=== PATIENT | female | born 1970 | race African-American/Black ===

== ENCOUNTER 2017-07-07 12:23 | Emergency (ER) | payer MEDICAID, OTHER ==
[~2017-07-07] VITALS: Ht 167.6 cm; Wt 85.0 kg
[~2017-07-07 12:23] MED LIST: QUET25TA
[2017-07-07 12:26] VITALS: BP 140/80
[2017-07-07] MEDS ORDERED: IBUPROFEN 600MG TABLET PO ONE (14:00)
== END 2017-07-07 19:56 | disposition left against medical advice (07) ==
LOC: ER 12:26
DX: M79.604 Pain in right leg (principal); R05 Cough; I10 Essential (primary) hypertension; Z88.0 Allergy status to penicillin
CPT/HCPCS: 99283

== ENCOUNTER 2019-06-05 10:17 | Emergency (ER) | payer MEDICAID ==
[~2019-06-05] VITALS: Ht 167.6 cm; Wt 91.0 kg
[2019-06-05] MEDS ORDERED: FOLIC ACID 1 MG, THIAMINE HCL 100 MG, MVI, ADULT NO.1 10 ML in DEXTROSE 5% WATER 1,000 ML IV ONE ×4 (10:45)
[2019-06-05 11:24] LABS: CHLORIDE 106 mEq/L (98-107)
[2019-06-05 11:28] LABS: BASOPHILS % 0.7 % (0.0-2.0); EOSINOPHILS % 2.2 % (0.0-5.0); HEMATOCRIT. 36.2 % (36.0-48.0); HEMOGLOBIN. 12.8 g/dL (12.0-16.0); LYMPHOCYTES % 29.2 % (20.0-50.0); MEAN CORPUSCULAR VOLUME 93.5 fL (81.0-99.0); MEAN PLATELET VOLUME 8.9 fl (7.4-10.4); MONOCYTES % 9.7 % (2.0-8.0); NEUTROPHILS % 58.2 % (40.0-76.0); PLATELET 197 x1000/uL (130-400); RED BLOOD CELL COUNT 3.87 mill/uL (4.2-5.4); RED CELL DISTRIBUTION WIDTH 13.3 % (11.6-14.6)
[2019-06-05 11:31] LABS: ETHANOL BLOOD < 10 mg/dL
[2019-06-05 12:22] LABS: CLARITY URINE CLOUDY (CLEAR); COLOR URINE YELLOW (YELLOW); KETONES URINE NEGATIVE (NEGATIVE); LEUKOCYTE ESTERASE URINE 1+ (NEGATIVE); NITRITE URINE NEGATIVE (NEGATIVE); OCCULT BLOOD URINE NEGATIVE (NEGATIVE); PROTEIN URINE NEGATIVE (NEGATIVE); SPECIFIC GRAVITY URINE 1.016 (1.005-1.030); UROBILINOGEN URINE 0.2 E.U./dL (0.2-1.0)
[2019-06-05 12:53] LABS: *AMPHETAMINES SCREEN URINE NEGATIVE (NEGATIVE); *BARBITURATES SCREEN URINE NEGATIVE (NEGATIVE); *BENZODIAZEPINES SCREEN URINE NEGATIVE (NEGATIVE); METHADONE URINE SCREEN NEGATIVE (NEGATIVE); OPIATES URINE SCREEN NEGATIVE (NEGATIVE)
[2019-06-05 12:57] LABS: *COCAINE SCREEN URINE PRESUMTIVE POSITIVE (NEGATIVE); CANNABINOID URINE SCREEN PRESUMTIVE POSITIVE (NEGATIVE); PHENCYCLIDINE URINE SCREEN PRESUMTIVE POSITIVE (NEGATIVE)
[2019-06-05 13:37] VITALS: BP 135/88
== END 2019-06-05 13:42 | disposition home or self-care (01) ==
LOC: ER 10:17
DX: T40.5X1A Poisoning by cocaine, accidental (unintentional), initial encounter (principal); F14.129 Cocaine abuse with intoxication, unspecified; F16.129 Hallucinogen abuse with intoxication, unspecified; T40.991A Poisoning by other psychodysleptics [hallucinogens], accidental (unintentional), initial encounter; G92 Toxic encephalopathy; Y92.89 Other specified places as the place of occurrence of the external cause; R03.0 Elevated blood-pressure reading, without diagnosis of hypertension; G40.909 Epilepsy, unspecified, not intractable, without status epilepticus; Z86.73 Personal history of transient ischemic attack (TIA), and cerebral infarction without residual deficits
CPT/HCPCS: 36415; 80053; 80305; 80307; 80320; 80329; 81003; 85025; 96365; 99284; J3411; J3490; J7070; G0480

== ENCOUNTER 2022-10-31 17:55 | Emergency (ER) | payer MEDICAID ==
[~2022-10-31] VITALS: Ht 167.6 cm; Wt 73.0 kg
[2022-10-31 17:58] VITALS: O2SAT 98
[2022-10-31] MEDS ORDERED: MORPHINE SULFATE 4 MG/ML CPJ (NOT FOR IM USE) IV STA (18:08)
[2022-10-31] MEDS ORDERED: SODIUM CHLORIDE 0.9% 1,000 ML IV ONE (18:15)
[2022-10-31 18:30] VITALS: TEMP 98.6
[2022-10-31 18:51] VITALS: BP 163/95; PULSE 85; RESP 17
[2022-10-31 19:04] LABS: BASOPHILS % 0.4 % (0.0-2.0); EOSINOPHILS % 1.4 % (0.0-5.0); HEMATOCRIT. 37.1 % (36.0-48.0); HEMOGLOBIN. 12.9 g/dL (12.0-16.0); LYMPHOCYTES % 40.1 % (20.0-50.0); MEAN CORPUSCULAR HEMOGLOBIN 32.9 pg (28.0-32.0); MEAN CORPUSCULAR HGB CONC 34.7 g/dL (31.0-37.0); MEAN CORPUSCULAR VOLUME 94.8 fL (81.0-99.0); MEAN PLATELET VOLUME 9.2 fl (7.4-10.4); MONOCYTES % 7.6 % (2.0-8.0); NEUTROPHILS % 50.5 % (40.0-76.0); PLATELET 187 x1000/uL (130-400); RED BLOOD CELL COUNT 3.91 mill/uL (4.2-5.4); RED CELL DISTRIBUTION WIDTH 13.8 % (11.6-14.6); WHITE BLOOD COUNT 5.1 x1000/uL (4.5-11.0)
[2022-10-31 19:09] LABS: CLARITY URINE CLEAR (CLEAR); COLOR URINE YELLOW (YELLOW); GLUCOSE URINE NEGATIVE (NEGATIVE); KETONES URINE NEGATIVE (NEGATIVE); LEUKOCYTE ESTERASE URINE NEGATIVE (NEGATIVE); NITRITE URINE NEGATIVE (NEGATIVE); OCCULT BLOOD URINE NEGATIVE (NEGATIVE); PH URINE 5.5 (4.5-8.0); PROTEIN URINE NEGATIVE (NEGATIVE); SPECIFIC GRAVITY URINE 1.004 (1.005-1.030); UROBILINOGEN URINE 0.2 E.U./dL (0.2-1.0)
[2022-10-31 19:13] LABS: CHLORIDE 103 mEq/L (98-107); INDEX HEMOLYSI 1 (1-3); INDEX ICTERIC 1 (1-4); INDEX LIPEMIC 1 (1-3); POTASSIUM 3.8 mEq/L (3.5-5.1); SODIUM 135 mEq/L (136-145)
[2022-10-31 19:14] LABS: HCG SCREEN NEGATIVE
[2022-10-31 19:16] LABS: INR 0.9; PROTHROMBIN TIME 9.8 sec (9.6-11.0)
[2022-10-31 19:22] LABS: ALANINE AMINOTRANSFERASE 125 IU/L (13-61); ALBUMIN 4.2 g/dL (3.4-5.0); ASPARTATE AMINOTRANSFERASE 119 IU/L (15-37); BILIRUBIN TOTAL 0.3 mg/dL (0.1-1.0); CALCIUM 9.1 mg/dL (8.5-10.1); CARBON DIOXIDE 28 mEq/L (21-32); CREATININE 0.8 mg/dL (0.6-1.3); ETHANOL BLOOD 264 mg/dL (-10); GLUCOSE 95 mg/dL (70-105); PROTEIN TOTAL 8.5 g/dL (6.0-8.3); TROPONIN I HIGH SENSITIVITY 7 ng/L (<54); UREA NITROGEN BLOOD 9 mg/dL (7-21)
[2022-10-31] MEDS ORDERED: FAMO20TA8 MT (21:45)
[2022-10-31] MEDS ORDERED: ACET325T52 PO (22:06)
== END 2022-11-01 00:49 | disposition home or self-care (01) ==
LOC: ER 17:55
DX: R11.2 Nausea with vomiting, unspecified (principal); R74.01 Elevation of levels of liver transaminase levels; F15.90 Other stimulant use, unspecified, uncomplicated; F10.90 Alcohol use, unspecified, uncomplicated; Z88.0 Allergy status to penicillin; Y90.9 Presence of alcohol in blood, level not specified
CPT/HCPCS: 80053; 81003; 80320; 84703; 83605; 85025; 85610; 84484; 36415; 71045; 71250; 74176; 96361; 96374; 99285; J2270; J7030; Z7610; G0480

== ENCOUNTER 2023-03-27 19:39 | Inpatient (IN) | payer MEDICAID ==
[~2023-03-27] VITALS: Ht 152.4 cm; Wt 65.6 kg
[~2023-03-27 19:39] MED LIST changes: +ACET325T52 PO; +FAMO20TA8 MT
[2023-03-27 21:10] LABS: HEMATOCRIT. 38.6 % (36.0-48.0); HEMOGLOBIN. 13.3 g/dL (12.0-16.0); MEAN CORPUSCULAR HEMOGLOBIN 32.9 pg (28.0-32.0); MEAN CORPUSCULAR HGB CONC 34.5 g/dL (31.0-37.0); MEAN CORPUSCULAR VOLUME 95.4 fL (81.0-99.0); MEAN PLATELET VOLUME 8.6 fl (7.4-10.4); PLATELET 199 x1000/uL (130-400); RED BLOOD CELL COUNT 4.05 mill/uL (4.2-5.4); RED CELL DISTRIBUTION WIDTH 13.2 % (11.6-14.6); WHITE BLOOD COUNT 5.2 x1000/uL (4.5-11.0)
[2023-03-27 21:13] LABS: DIFFERENTIAL COMMENT 1
[2023-03-27 21:23] LABS: HCG SCREEN NEGATIVE
[2023-03-27 21:26] LABS: ALANINE AMINOTRANSFERASE 76 IU/L (10-49); ALBUMIN 4.3 g/dL (3.2-4.8); ASPARTATE AMINOTRANSFERASE 82 IU/L (<34); BILIRUBIN TOTAL 0.6 mg/dL (0.1-1.0); CALCIUM 9.5 mg/dL (8.7-10.4); CARBON DIOXIDE 18 mEq/L (21-32); CHLORIDE 106 mEq/L (98-107); CREATININE 0.7 mg/dL (0.6-1.0); ETHANOL BLOOD 19 mg/dL (<10); GLUCOSE 84 mg/dL (70-105); POTASSIUM 3.9 mEq/L (3.5-5.1); SODIUM 138 mEq/L (136-145); UREA NITROGEN BLOOD 12 mg/dL (9-23)
[2023-03-27 21:34] LABS: PLATELET ESTIMATE NORMAL
[2023-03-28] MEDS ORDERED: METOCLOPRAMIDE HCL 10MG/2ML VIAL IV STA (00:02)
[2023-03-28] MEDS ORDERED: FAMOTIDINE 20MG/2ML VIAL IV STA (00:02)
[2023-03-28] MEDS ORDERED: SODIUM CHLORIDE 0.9% 1,000 ML IV ONE (00:15)
[2023-03-28 01:36] LABS: CLARITY URINE CLOUDY (CLEAR); COLOR URINE YELLOW (YELLOW); GLUCOSE URINE NEGATIVE (NEGATIVE); KETONES URINE 1+ (NEGATIVE); LEUKOCYTE ESTERASE URINE NEGATIVE (NEGATIVE); NITRITE URINE NEGATIVE (NEGATIVE); OCCULT BLOOD URINE NEGATIVE (NEGATIVE); PROTEIN URINE NEGATIVE (NEGATIVE); UROBILINOGEN URINE 0.2 E.U./dL (0.2-1.0)
[2023-03-28 01:39] LABS: BACTERIA URINE NONE SEEN; RBC URINE NONE SEEN /hpf (0-2); SQUAMOUS EPITHELIAL CELL URINE FEW /lpf (RARE/1+); WBC URINE NONE SEEN /hpf (0-2)
[2023-03-28 01:52] LABS: *AMPHETAMINES SCREEN URINE NEGATIVE (NEGATIVE); *BARBITURATES SCREEN URINE NEGATIVE (NEGATIVE); *BENZODIAZEPINES SCREEN URINE NEGATIVE (NEGATIVE); *COCAINE SCREEN URINE NEGATIVE (NEGATIVE); CANNABINOID URINE SCREEN PRESUMPTIVE POSITIVE (NEGATIVE); ECSTASY MDMA SCREEN URINE NEGATIVE (NEGATIVE); METHADONE URINE SCREEN Neg (NEGATIVE); OPIATES URINE SCREEN NEGATIVE (NEGATIVE); PHENCYCLIDINE URINE SCREEN PRESUMTIVE POSITIVE (NEGATIVE)
[2023-03-28 04:42] LABS: ETHANOL BLOOD < 10 mg/dL (<10)
[2023-03-28 04:43] LABS: PHENYTOIN < 2.0 ug/mL (10-20)
[2023-03-28 05:30] VITALS: BP 132/53; PULSE 90; RESP 20; TEMP 97.7
[2023-03-28 06:09] VITALS: BP 132/53; PULSE 86; RESP 18; TEMP 98.1
[2023-03-28] MEDS ORDERED: CLONIDINE 0.1MG TABLET PO PRN (06:15)
[2023-03-28] MEDS ORDERED: ONDANSETRON HCL 4MG/2ML INJ IV PRN (06:15)
[2023-03-28] MEDS ORDERED: SODIUM CHLORIDE 0.9% 1,000 ML IV SCH (06:15)
[2023-03-28] MEDS ORDERED: ACETAMINOPHEN 325MG TABLET PO PRN (06:15)
[2023-03-28] MEDS ORDERED: IPRATROPIUM/ALBUTEROL 0.5-3(2.5)MG/3ML NEB HHN PRN (06:15)
[2023-03-28] MEDS: PANTOPRAZOLE SODIUM 40 MG/VIAL IV SCH ×2 (06:49→09:00)
[2023-03-28] MEDS: ACETAMINOPHEN 325MG TABLET PO PRN ×3 (06:51→18:37)
[2023-03-28 08:00] VITALS: BP 125/90; PULSE 90; RESP 20; TEMP 99.8
[2023-03-28] MEDS: ENOXAPARIN 40MG/0.4ML SYR SUBCUT SCH (09:00)
[2023-03-28] MEDS ORDERED: DEXT 5%/0.9% NACL 1,000 ML IV ONE (09:00)
[2023-03-28 09:11] LABS: D-DIMER 0.82 mg/L FEU (<0.50); PROTHROMBIN TIME 10.6 sec (9.6-11.0)
[2023-03-28] MEDS ORDERED: SIMV10TA97 PO (10:14)
[2023-03-28] MEDS ORDERED: NIFE-33 PO (10:14)
[2023-03-28] MEDS: THIAMINE HCL 100 MG/1 ML 2ML VIAL IM SCH ×2 (10:15→11:29)
[2023-03-28] MEDS ORDERED: LORAZEPAM 1MG TABLET PO PRN (10:15)
[2023-03-28] MEDS ORDERED: CHLORDIAZEPOXIDE 25MG CAPSULE PO PRN (10:15)
[2023-03-28] MEDS ORDERED: LOPERAMIDE HCL 2MG CAPSULE PO NR (11:15)
[2023-03-28] MEDS: FOLIC ACID 1MG TABLET PO SCH (11:28)
[2023-03-28] MEDS: MULTIVITAMINS,THER W-MINERALS TABLET PO SCH (11:28)
[2023-03-28 12:00] VITALS: BP 136/68; PULSE 77; RESP 18; TEMP 99
[2023-03-28] MEDS ORDERED: LORAZEPAM 2MG/ML INJ IV PRN (15:30)
[2023-03-28 16:00] VITALS: BP 167/108; PULSE 85; RESP 20; TEMP 96.6
[2023-03-28] MEDS ORDERED: MAGNESIUM 2 G PREMIX 50 ML IV NR (17:00)
[2023-03-28] MEDS: MAGNESIUM OXIDE 400MG TABLET PO SCH (18:37)
[2023-03-28 20:00] VITALS: BP 146/84; PULSE 86; RESP 20; TEMP 98.1
[2023-03-29] VITALS: BP 153/77; PULSE 85; RESP 20; TEMP 97.5
[2023-03-29] MEDS: ACETAMINOPHEN 325MG TABLET PO PRN ×2 (00:01→06:23)
[2023-03-29 04:00] VITALS: BP 156/90; PULSE 77; RESP 20; TEMP 97.2
[2023-03-29 08:00] VITALS: BP 157/82; PULSE 72; RESP 18; TEMP 98.3
[2023-03-29] MEDS: MULTIVITAMINS,THER W-MINERALS TABLET PO SCH (08:36)
[2023-03-29] MEDS: FOLIC ACID 1MG TABLET PO SCH (08:36)
[2023-03-29] MEDS: PANTOPRAZOLE SODIUM 40 MG/VIAL IV SCH (08:37)
[2023-03-29] MEDS: MAGNESIUM OXIDE 400MG TABLET PO SCH (08:37)
[2023-03-29] MEDS: THIAMINE HCL 100 MG/1 ML 2ML VIAL IM SCH (09:00)
[2023-03-29] MEDS: ENOXAPARIN 40MG/0.4ML SYR SUBCUT SCH (09:00)
[2023-03-29 09:56] LABS: BASOPHILS % 0.4 % (0.0-2.0); EOSINOPHILS % 1.4 % (0.0-5.0); HEMATOCRIT. 38.1 % (36.0-48.0); HEMOGLOBIN. 13.1 g/dL (12.0-16.0); LYMPHOCYTES % 20.7 % (20.0-50.0); MEAN CORPUSCULAR HEMOGLOBIN 32.5 pg (28.0-32.0); MEAN CORPUSCULAR HGB CONC 34.3 g/dL (31.0-37.0); MEAN CORPUSCULAR VOLUME 94.5 fL (81.0-99.0); MEAN PLATELET VOLUME 9.2 fl (7.4-10.4); MONOCYTES % 10.7 % (2.0-8.0); NEUTROPHILS % 66.8 % (40.0-76.0); PLATELET 184 x1000/uL (130-400); RED BLOOD CELL COUNT 4.03 mill/uL (4.2-5.4); RED CELL DISTRIBUTION WIDTH 12.8 % (11.6-14.6); WHITE BLOOD COUNT 2.3 x1000/uL (4.5-11.0)
[2023-03-29 10:16] LABS: ALANINE AMINOTRANSFERASE 61 IU/L (10-49); ALBUMIN 4.2 g/dL (3.2-4.8); ASPARTATE AMINOTRANSFERASE 71 IU/L (<34); BILIRUBIN TOTAL 0.4 mg/dL (0.1-1.0); CALCIUM 9.4 mg/dL (8.7-10.4); CARBON DIOXIDE 21 mEq/L (21-32); CHLORIDE 105 mEq/L (98-107); CHOLESTEROL 212 mg/dL (<200); CREATININE 0.8 mg/dL (0.6-1.0); GLUCOSE 91 mg/dL (70-105); HDL CHOLESTEROL 70 mg/dL (>65); LDL CHOLESTEROL 114 mg/dL (5-100); POTASSIUM 3.3 mEq/L (3.5-5.1); PROTEIN TOTAL 7.6 g/dL (6.0-8.3); SODIUM 138 mEq/L (136-145); T4 FREE 1.23 ng/dL (0.89-1.76); THYROID STIMULATING HORMONE 0.61 uIU/mL (0.55-4.78); TRIGLYCERIDE 84 mg/dL (0-150); UREA NITROGEN BLOOD 10 mg/dL (9-23)
[2023-03-29] MEDS ORDERED: BISM262T15 MT (10:43)
[2023-03-29 11:18] VITALS: BP 157/82; PULSE 72; TEMP 98.3; O2SAT 100
[2023-03-29] MEDS ORDERED: BISMUTH SUBSALICYLATE 262 MG/15 ML-120ML BOTTLE PO NR (12:00)
[2023-03-29 12:07] LABS: HEPATITIS A AB IGM NEGATIVE (Negative); HEPATITIS B CORE AB IGM NEGATIVE (Negative); HEPATITIS B SURFACE ANTIGEN NEGATIVE (Negative); HEPATITIS C AB NON REACTIVE (Neg) (Negative)
[2023-03-29] MEDS ORDERED: PANTOPRAZOLE 40MG DR TABLET PO SCH (17:20)
[2023-03-31] MEDS ORDERED: THIAMINE HCL 100MG TABLET PO SCH (09:00)
== END 2023-03-29 11:40 | disposition home or self-care (01) | DRG 249 ==
LOC: ER 19:39 → 6EST 03-28 03:02 → EDBEDREQTM 03-28 03:04 → EDBEDREQ 03-28 03:04 → ER 03-28 05:17
PROVIDERS: ADMIT Internal Medicine; ATTEND Internal Medicine
DX: A08.4 Viral intestinal infection, unspecified (principal); E83.39 Other disorders of phosphorus metabolism; E87.20 Acidosis, unspecified; E87.6 Hypokalemia; I10 Essential (primary) hypertension; G40.909 Epilepsy, unspecified, not intractable, without status epilepticus; I69.341 Monoplegia of lower limb following cerebral infarction affecting right dominant side; F10.10 Alcohol abuse, uncomplicated; F20.9 Schizophrenia, unspecified; F43.10 Post-traumatic stress disorder, unspecified; F19.10 Other psychoactive substance abuse, uncomplicated; R74.01 Elevation of levels of liver transaminase levels; Z88.0 Allergy status to penicillin; Z79.899 Other long term (current) drug therapy
CPT/HCPCS: 36415; 74176; 80053; 80061; 80185; 80305; 80320; 81003; 82270; 83605; 83735; 84100; 84145; 84439; 84443; 84703; 85025; 85379; 86705; 86709; 87015; 87045; 87340; 87427; 87449; 93970; 99285; A6261; C1893; C9113; J1650; J2765; J3411; J3475; J3490; J7030; G0480

== ENCOUNTER 2023-04-05 16:51 | Emergency (ER) | payer MEDICAID ==
[~2023-04-05] VITALS: Ht 167.6 cm; Wt 77.0 kg
[~2023-04-05 16:51] MED LIST changes: -ACET325T52 PO; +BISM262T15 MT; -FAMO20TA8 MT; +NIFE-33 PO; -QUET25TA; +SIMV10TA97 PO
[2023-04-05 16:56] VITALS: TEMP 98.6; O2SAT 100
[2023-04-05] MEDS ORDERED: DICL50TA9 MT (17:59)
[2023-04-05 18:00] VITALS: BP 174/100; PULSE 91; RESP 16
[2023-04-05] MEDS ORDERED: HYDROCODONE/ACETAMINOPHEN 5/325MG TABLET PO ONE (18:00)
== END 2023-04-05 18:09 | disposition home or self-care (01) ==
LOC: ER 16:51
DX: S09.90XA Unspecified injury of head, initial encounter (principal); M25.522 Pain in left elbow; M25.521 Pain in right elbow; I10 Essential (primary) hypertension; Z88.0 Allergy status to penicillin; Z86.59 Personal history of other mental and behavioral disorders; Z91.018 Allergy to other foods; Z98.890 Other specified postprocedural states; W18.30XA Fall on same level, unspecified, initial encounter; Y93.89 Activity, other specified; Y92.89 Other specified places as the place of occurrence of the external cause; Y99.8 Other external cause status
CPT/HCPCS: 99283

== ENCOUNTER 2023-05-25 22:16 | Emergency (ER) | payer MEDICAID ==
[~2023-05-25] VITALS: Ht 152.4 cm; Wt 80.0 kg
[~2023-05-25 22:16] MED LIST changes: -BISM262T15 MT
[2023-05-25 22:18] VITALS: BP 139/80; PULSE 86; RESP 18; TEMP 98.4; O2SAT 98
[2023-05-25] MEDS ORDERED: LIDOCAINE HCL/PF 1% 10 MG/ML 5ML VIAL INFIL ONE (23:00)
[2023-05-25] MEDS ORDERED: BACITRACIN ZINC OINT UDPKT TOP ONE (23:00)
[2023-05-25] MEDS ORDERED: TETANUS, DIPHTHERIA, PERTUSSIS VAC/PF 0.5ML (>10YR OLD) IM ONE (23:00)
[2023-05-25] MEDS ORDERED: BO1 TP (23:11)
== END 2023-05-26 00:15 | disposition left against medical advice (07) ==
LOC: ER 22:16
DX: S61.212A Laceration without foreign body of right middle finger without damage to nail, initial encounter (principal); I10 Essential (primary) hypertension; Y99.8 Other external cause status; Z88.0 Allergy status to penicillin; Z91.018 Allergy to other foods; Z98.890 Other specified postprocedural states; Z86.59 Personal history of other mental and behavioral disorders; Z86.73 Personal history of transient ischemic attack (TIA), and cerebral infarction without residual deficits; Y04.0XXA Assault by unarmed brawl or fight, initial encounter; Y93.89 Activity, other specified; Y92.89 Other specified places as the place of occurrence of the external cause
CPT/HCPCS: 99283; 73140; 90715; 12001; 90471; J3490

== ENCOUNTER 2023-09-13 22:17 | Emergency (ER) | payer MEDICAID ==
[~2023-09-13] VITALS: Ht 154.9 cm; Wt 78.0 kg
[~2023-09-13 22:17] MED LIST changes: +BO1 TP
[2023-09-13 22:21] VITALS: BP 143/92; PULSE 89; RESP 18; TEMP 98.5; O2SAT 98
[2023-09-14] MEDS ORDERED: KETOROLAC 30MG/ML VIAL IM ONE (00:15)
[2023-09-14 00:57] LABS: HEMOGLOBIN. 13.6 g/dL (12.0-16.0); LYMPHOCYTES % 40.5 % (20.0-50.0); MEAN CORPUSCULAR HEMOGLOBIN 33.2 pg (28.0-32.0); MEAN CORPUSCULAR HGB CONC 34.9 g/dL (31.0-37.0); MEAN CORPUSCULAR VOLUME 95.3 fL (81.0-99.0); MEAN PLATELET VOLUME 8.5 fl (7.4-10.4); MONOCYTES % 8.3 % (2.0-8.0); NEUTROPHILS % 48.2 % (40.0-76.0); PLATELET 210 x1000/uL (130-400); RED BLOOD CELL COUNT 4.09 mill/uL (4.2-5.4); RED CELL DISTRIBUTION WIDTH 12.9 % (11.6-14.6); WHITE BLOOD COUNT 4.7 x1000/uL (4.5-11.0)
[2023-09-14 01:08] LABS: CHLORIDE 108 mEq/L (98-107); POTASSIUM 4.3 mEq/L (3.5-5.1); SODIUM 141 mEq/L (136-145)
[2023-09-14 01:09] LABS: CARBON DIOXIDE 27 mEq/L (21-32)
[2023-09-14 01:14] LABS: CREATININE 0.9 mg/dL (0.6-1.0); GLUCOSE 83 mg/dL (70-105)
[2023-09-14 01:15] LABS: UREA NITROGEN BLOOD 8 mg/dL (9-23)
[2023-09-14 01:17] LABS: TROPONIN I HIGH SENSITIVITY < 4 ng/L (3.0-34)
[2023-09-14] MEDS ORDERED: ACET325T52 MT (01:24)
[2023-09-14] MEDS ORDERED: ACETAMINOPHEN 325MG TABLET PO ONE (02:00)
== END 2023-09-14 02:14 | disposition home or self-care (01) ==
LOC: ER 22:17
DX: R07.89 Other chest pain (principal); I10 Essential (primary) hypertension; F20.9 Schizophrenia, unspecified; R56.9 Unspecified convulsions; Z86.73 Personal history of transient ischemic attack (TIA), and cerebral infarction without residual deficits; Z88.0 Allergy status to penicillin; Z79.899 Other long term (current) drug therapy
CPT/HCPCS: 99285; 82962; 71045; 80048; 85025; 84484; 36415; 93005; J1885

== ENCOUNTER 2024-05-22 18:23 | Emergency (ER) | payer MEDICAID ==
[~2024-05-22] VITALS: Ht 152.4 cm; Wt 68.0 kg
[~2024-05-22 18:23] MED LIST changes: +ACET-3800 MT
[2024-05-22 18:26] VITALS: BP 146/80; PULSE 99; RESP 20; TEMP 36.9; O2SAT 100
== END 2024-05-22 20:50 | disposition left against medical advice (07) ==
LOC: ER 18:23
DX: R11.2 Nausea with vomiting, unspecified (principal); Z53.21 Procedure and treatment not carried out due to patient leaving prior to being seen by health care provider

== ENCOUNTER 2024-05-27 21:19 | Emergency (ER) | payer MEDICAID ==
[~2024-05-27] VITALS: Ht 170.2 cm; Wt 77.0 kg
[2024-05-27 21:24] VITALS: TEMP 36.8; O2SAT 98
[2024-05-27 22:23] LABS: BASOPHILS % 0.6 % (0.0-2.0); EOSINOPHILS % 1.1 % (0.0-5.0); HEMATOCRIT. 37.7 % (36.0-48.0); HEMOGLOBIN. 13.1 g/dL (12.0-16.0); LYMPHOCYTES % 35.8 % (20.0-50.0); MEAN CORPUSCULAR HEMOGLOBIN 33.4 pg (28.0-32.0); MEAN CORPUSCULAR HGB CONC 34.6 g/dL (31.0-37.0); MEAN CORPUSCULAR VOLUME 96.4 fL (81.0-99.0); MEAN PLATELET VOLUME 8.5 fl (7.4-10.4); MONOCYTES % 12.5 % (2.0-8.0); PLATELET 249 x1000/uL (130-400); RED BLOOD CELL COUNT 3.91 mill/uL (4.2-5.4); RED CELL DISTRIBUTION WIDTH 12.8 % (11.6-14.6)
[2024-05-27 22:24] LABS: CHLORIDE 101 mEq/L (98-107); POTASSIUM 3.8 mEq/L (3.5-5.1); SODIUM 134 mEq/L (136-145)
[2024-05-27 22:25] LABS: CALCIUM 9.8 mg/dL (8.7-10.4); CARBON DIOXIDE 28 mEq/L (21-32)
[2024-05-27 22:30] LABS: CREATININE 0.9 mg/dL (0.6-1.0); GLUCOSE 82 mg/dL (70-105); UREA NITROGEN BLOOD 10 mg/dL (9-23)
[2024-05-27 22:33] LABS: TROPONIN I HIGH SENSITIVITY < 4 ng/L (3.0-34)
[2024-05-27 23:48] VITALS: BP 164/90; PULSE 90; RESP 16
[2024-05-27] MEDS: ONDANSETRON HCL 4MG TABLET PO ONE (23:48)
[2024-05-27] MEDS: KETOROLAC 15MG/ML VIAL IM ONE (23:48)
[2024-05-28] MEDS ORDERED: OFLO5DRO4 EACH EAR (01:26)
[2024-05-28] MEDS ORDERED: ACET-2708 MT (01:26)
== END 2024-05-28 01:36 | disposition home or self-care (01) ==
LOC: ER 21:19
DX: K29.70 Gastritis, unspecified, without bleeding (principal); H60.8X3 Other otitis externa, bilateral; F19.90 Other psychoactive substance use, unspecified, uncomplicated; I10 Essential (primary) hypertension; F20.9 Schizophrenia, unspecified; Z79.899 Other long term (current) drug therapy; Z88.0 Allergy status to penicillin
CPT/HCPCS: 99284; 80048; 85025; 84484; 36415; 74176; J1885; Q0162

== ENCOUNTER 2024-06-02 12:44 | Emergency (ER) | payer MEDICAID ==
[~2024-06-02] VITALS: Ht 165.1 cm; Wt 64.0 kg
[~2024-06-02 12:44] MED LIST changes: +ACET-2708 MT; +OFLO5DRO4 EACH EAR
[2024-06-02 12:51] VITALS: O2SAT 96
[2024-06-02] MEDS ORDERED: LORAZEPAM 2MG/ML INJ IM STA (13:07)
[2024-06-02] MEDS: DIPHENHYDRAMINE 50MG/ML VIAL IM STA (13:44)
[2024-06-02] MEDS: HALOPERIDOL LACTATE 5MG/ML VIAL IM STA (13:44)
[2024-06-02] MEDS: LORAZEPAM 2MG/ML INJ IM ONE (13:45)
[2024-06-02 14:02] LABS: CLARITY URINE CLOUDY (CLEAR); COLOR URINE YELLOW (YELLOW); GLUCOSE URINE NEGATIVE (NEGATIVE); KETONES URINE NEGATIVE (NEGATIVE); LEUKOCYTE ESTERASE URINE NEGATIVE (NEGATIVE); NITRITE URINE NEGATIVE (NEGATIVE); OCCULT BLOOD URINE NEGATIVE (NEGATIVE); PH URINE 5.5 (4.5-8.0); PROTEIN URINE NEGATIVE (NEGATIVE); SPECIFIC GRAVITY URINE 1.009 (1.005-1.030); UROBILINOGEN URINE 0.2 E.U./dL (0.2-1.0)
[2024-06-02 14:15] LABS: *AMPHETAMINES SCREEN URINE NEGATIVE (NEGATIVE); *BARBITURATES SCREEN URINE NEGATIVE (NEGATIVE); *BENZODIAZEPINES SCREEN URINE NEGATIVE (NEGATIVE); RBC URINE NONE SEEN /hpf (0-2); SQUAMOUS EPITHELIAL CELL URINE 3+ /lpf (RARE/1+)
[2024-06-02 14:16] LABS: *COCAINE SCREEN URINE NEGATIVE (NEGATIVE); BACTERIA URINE 2+; CANNABINOID URINE SCREEN PRESUMPTIVE POSITIVE (NEGATIVE); ECSTASY MDMA SCREEN URINE NEGATIVE (NEGATIVE); METHADONE URINE SCREEN NEGATIVE (NEGATIVE); OPIATES URINE SCREEN NEGATIVE (NEGATIVE); PHENCYCLIDINE URINE SCREEN PRESUMTIVE POSITIVE (NEGATIVE); YEAST URINE NONE SEEN
[2024-06-02 15:59] LABS: BASOPHILS % 0.9 % (0.0-2.0); EOSINOPHILS % 1.8 % (0.0-5.0); HEMATOCRIT. 37.9 % (36.0-48.0); HEMOGLOBIN. 12.9 g/dL (12.0-16.0); LYMPHOCYTES % 45.5 % (20.0-50.0); MEAN CORPUSCULAR HEMOGLOBIN 33.1 pg (28.0-32.0); MEAN CORPUSCULAR HGB CONC 34.1 g/dL (31.0-37.0); MEAN CORPUSCULAR VOLUME 97.1 fL (81.0-99.0); MEAN PLATELET VOLUME 7.8 fl (7.4-10.4); MONOCYTES % 5.7 % (2.0-8.0); NEUTROPHILS % 46.1 % (40.0-76.0); PLATELET 252 x1000/uL (130-400); RED BLOOD CELL COUNT 3.91 mill/uL (4.2-5.4); RED CELL DISTRIBUTION WIDTH 12.7 % (11.6-14.6); WHITE BLOOD COUNT 4.2 x1000/uL (4.5-11.0)
[2024-06-02 16:09] LABS: CHLORIDE 110 mEq/L (98-107); POTASSIUM 3.4 mEq/L (3.5-5.1); SODIUM 146 mEq/L (136-145)
[2024-06-02 16:10] LABS: CALCIUM 9.2 mg/dL (8.7-10.4); CARBON DIOXIDE 26 mEq/L (21-32)
[2024-06-02 16:15] LABS: CREATININE 0.7 mg/dL (0.6-1.0); GLUCOSE 92 mg/dL (70-105); TROPONIN I HIGH SENSITIVITY 4 ng/L (3.0-34)
[2024-06-02 16:16] LABS: ETHANOL BLOOD 176 mg/dL (<10)
[2024-06-02 16:17] LABS: ACETAMINOPHEN < 2 ug/mL (10-30); ALANINE AMINOTRANSFERASE 49 IU/L (10-49); ASPARTATE AMINOTRANSFERASE 57 IU/L (<34); BILIRUBIN DIRECT 0.1 mg/dL (<=3.0); BILIRUBIN TOTAL 0.3 mg/dL (0.1-1.0)
[2024-06-02 16:23] LABS: UREA NITROGEN BLOOD < 5 mg/dL (9-23)
[2024-06-02] MEDS: NITROFURANTOIN 100MG M/M CAPSULE PO SCH (21:00)
[2024-06-03] MEDS: ACETAMINOPHEN 325MG TABLET PO NR (05:15)
[2024-06-03 06:00] VITALS: TEMP 36.7
[2024-06-03 18:36] VITALS: TEMP 98
[2024-06-03] MEDS: ACETAMINOPHEN 325MG TABLET PO ONE (18:36)
[2024-06-03] MEDS ORDERED: NITR-87 MT (20:14)
[2024-06-03] MEDS ORDERED: AMLODIPINE 10MG TABLET PO ONE (20:15)
[2024-06-03] MEDS: AMLODIPINE 5MG TABLET PO NR (22:48)
[2024-06-03 23:03] VITALS: BP 159/79; PULSE 64; RESP 14; O2SAT 100
== END 2024-06-03 22:47 ==
LOC: ER 12:44
DX: R41.0 Disorientation, unspecified (principal); R45.851 Suicidal ideations; I10 Essential (primary) hypertension; F20.9 Schizophrenia, unspecified; Z59.00 Homelessness unspecified; Z79.899 Other long term (current) drug therapy; Z86.73 Personal history of transient ischemic attack (TIA), and cerebral infarction without residual deficits; Z88.0 Allergy status to penicillin
CPT/HCPCS: 80076; 80305; 80048; 81003; 81025; 80307; 80329; 80320; 83690; 85025; 84484; 36415; 74176; 93005; 96372; 99291; J1200; J1630; J2060; Z7610; A4606; G0480

== ENCOUNTER 2024-07-15 15:56 | Emergency (ER) | payer MEDICAID ==
[~2024-07-15] VITALS: Ht 162.6 cm; Wt 60.0 kg
[~2024-07-15 15:56] MED LIST changes: +NITR-87 MT
[2024-07-15 15:59] VITALS: BP 128/79; PULSE 91; RESP 18; TEMP 36.9; O2SAT 96
[2024-07-15] MEDS ORDERED: MAGNESIUM/ALUMINUM HYDROXIDE/SIMETHICONE 30ML UDC PO STA (16:04)
[2024-07-15 17:09] LABS: BASOPHILS % 0.4 % (0.0-2.0); EOSINOPHILS % 1.9 % (0.0-5.0); HEMATOCRIT. 38.5 % (36.0-48.0); HEMOGLOBIN. 13.3 g/dL (12.0-16.0); MEAN CORPUSCULAR HEMOGLOBIN 32.5 pg (28.0-32.0); MEAN CORPUSCULAR HGB CONC 34.4 g/dL (31.0-37.0); MEAN CORPUSCULAR VOLUME 94.5 fL (81.0-99.0); MONOCYTES % 7.3 % (2.0-8.0); NEUTROPHILS % 51.4 % (40.0-76.0); PLATELET 185 x1000/uL (130-400); RED BLOOD CELL COUNT 4.08 mill/uL (4.2-5.4); RED CELL DISTRIBUTION WIDTH 13.7 % (11.6-14.6); WHITE BLOOD COUNT 4.9 x1000/uL (4.5-11.0)
[2024-07-15 17:19] LABS: CHLORIDE 103 mEq/L (98-107); POTASSIUM 3.9 mEq/L (3.5-5.1); SODIUM 142 mEq/L (136-145)
[2024-07-15 17:20] LABS: CARBON DIOXIDE 22 mEq/L (21-32)
[2024-07-15 17:21] LABS: CALCIUM 9.6 mg/dL (8.7-10.4)
[2024-07-15 17:25] LABS: CREATININE 0.9 mg/dL (0.6-1.0); GLUCOSE 97 mg/dL (70-105)
[2024-07-15 17:26] LABS: ETHANOL BLOOD 300 mg/dL (<10); UREA NITROGEN BLOOD 11 mg/dL (9-23)
[2024-07-15 17:27] LABS: ALANINE AMINOTRANSFERASE 45 IU/L (10-49); ASPARTATE AMINOTRANSFERASE 84 IU/L (<34)
[2024-07-15 17:28] LABS: BILIRUBIN DIRECT 0.1 mg/dL (<=3.0); BILIRUBIN TOTAL 0.4 mg/dL (0.1-1.0); PROTEIN TOTAL 8.3 g/dL (6.0-8.3)
[2024-07-15 18:09] LABS: *AMPHETAMINES SCREEN URINE NEGATIVE (NEGATIVE); *BARBITURATES SCREEN URINE NEGATIVE (NEGATIVE); *BENZODIAZEPINES SCREEN URINE NEGATIVE (NEGATIVE); *COCAINE SCREEN URINE NEGATIVE (NEGATIVE); CANNABINOID URINE SCREEN NEGATIVE (NEGATIVE); ECSTASY MDMA SCREEN URINE NEGATIVE (NEGATIVE); METHADONE URINE SCREEN NEGATIVE (NEGATIVE); OPIATES URINE SCREEN NEGATIVE (NEGATIVE); PHENCYCLIDINE URINE SCREEN PRESUMTIVE POSITIVE (NEGATIVE)
[2024-07-15 18:25] LABS: GLUCOSE URINE NEGATIVE (NEGATIVE); KETONES URINE NEGATIVE (NEGATIVE)
[2024-07-15 18:59] LABS: CLARITY URINE CLEAR (CLEAR); COLOR URINE YELLOW (YELLOW)
[2024-07-15 19:00] LABS: LEUKOCYTE ESTERASE URINE 3+ (NEGATIVE); NITRITE URINE NEGATIVE (NEGATIVE); OCCULT BLOOD URINE TRACE (NEGATIVE); PH URINE 5.5 (4.5-8.0); PROTEIN URINE NEGATIVE (NEGATIVE); SPECIFIC GRAVITY URINE 1.006 (1.005-1.030); UROBILINOGEN URINE 0.2 E.U./dL (0.2-1.0)
[2024-07-15] MEDS ORDERED: NITR-87 MT (19:09)
[2024-07-15] MEDS ORDERED: CHLORDIAZEPOXIDE 25MG CAPSULE PO ONE (19:15)
[2024-07-15 19:29] LABS: BACTERIA URINE 1+; RBC URINE 0-2 /hpf (0-2); SQUAMOUS EPITHELIAL CELL URINE 1+ /lpf (RARE/1+); WBC URINE 25-50 /hpf (0-2)
== END 2024-07-15 19:21 | disposition left against medical advice (07) ==
LOC: ER 15:56
DX: N30.00 Acute cystitis without hematuria (principal); R10.2 Pelvic and perineal pain; R10.9 Unspecified abdominal pain; F20.9 Schizophrenia, unspecified; I10 Essential (primary) hypertension; Z79.899 Other long term (current) drug therapy; Z86.73 Personal history of transient ischemic attack (TIA), and cerebral infarction without residual deficits; Z88.0 Allergy status to penicillin
CPT/HCPCS: 36415; 74018; 80048; 80076; 80305; 80320; 81003; 85025; 87077; 87186; 99284; G0480

== ENCOUNTER 2024-08-30 22:53 | Emergency (ER) | payer MEDICAID ==
[~2024-08-30] VITALS: Ht 167.6 cm; Wt 71.0 kg
[2024-08-30 23:10] VITALS: BP 165/87; PULSE 83; RESP 16; TEMP 36.6; O2SAT 97
== END 2024-08-31 01:29 | disposition left against medical advice (07) ==
LOC: ER 23:22
DX: F10.129 Alcohol abuse with intoxication, unspecified (principal); Z53.21 Procedure and treatment not carried out due to patient leaving prior to being seen by health care provider; Y90.9 Presence of alcohol in blood, level not specified

== ENCOUNTER 2024-11-09 12:49 | Emergency (ER) | payer MEDICAID ==
[~2024-11-09] VITALS: Ht 162.6 cm; Wt 65.0 kg
[2024-11-09 12:51] VITALS: BP 125/83; PULSE 92; RESP 16; TEMP 36.9; O2SAT 100
== END 2024-11-09 14:49 | disposition left against medical advice (07) ==
LOC: ER 13:02
DX: R10.9 Unspecified abdominal pain (principal); I10 Essential (primary) hypertension
CPT/HCPCS: 99281

== ENCOUNTER 2024-11-09 19:16 | Emergency (ER) | payer MEDICAID, OTHER ==
[~2024-11-09] VITALS: Ht 152.4 cm; Wt 58.0 kg
[2024-11-09 19:30] VITALS: TEMP 36.9; O2SAT 99
[2024-11-09] MEDS: ACETAMINOPHEN 325MG TABLET PO ONE (21:12)
[2024-11-09 23:23] VITALS: BP 183/95; PULSE 75; RESP 18; O2SAT 99
== END 2024-11-09 23:27 ==
LOC: ER 19:16
DX: S00.03XA Contusion of scalp, initial encounter (principal); I10 Essential (primary) hypertension; Z79.899 Other long term (current) drug therapy; Z88.0 Allergy status to penicillin; Z91.018 Allergy to other foods; X58.XXXA Exposure to other specified factors, initial encounter; Y93.89 Activity, other specified; Y92.89 Other specified places as the place of occurrence of the external cause; Y99.8 Other external cause status
CPT/HCPCS: 99284

== ENCOUNTER 2025-01-11 23:18 | Emergency (ER) | payer MEDICAID, OTHER ==
[~2025-01-11] VITALS: Ht 152.4 cm; Wt 77.0 kg
[2025-01-11 23:43] VITALS: BP 160/98; PULSE 97; RESP 18; TEMP 37; O2SAT 99
== END 2025-01-12 01:31 | disposition left against medical advice (07) ==
LOC: ER 23:18
DX: R11.2 Nausea with vomiting, unspecified (principal)
CPT/HCPCS: 99281